=== PATIENT | male | born 1955 | race Caucasian/White ===

== ENCOUNTER 2022-10-11 09:31 | Emergency (ER) | payer BC ==
[~2022-10-11] VITALS: Ht 172.7 cm; Wt 90.7 kg
[2022-10-11 09:31] VITALS: BP_SYST 145
--- NOTE | 2022-10-11 09:31 | NUR ---
BROUGHT BACK TO BED #4 AND TRIAGED, REPORT GIVEN TO BROWN
--- NOTE | 2022-10-11 09:35 | NUR ---
RECEIVED PT FROM ALEX BLANDON. ASSUMED CARE.
--- NOTE | 2022-10-11 09:40 | NUR ---
DR. MARIN AT BEDSIDE TO ASSESS PT.
[2022-10-11] MEDS ORDERED: KETOROLAC TROMETHAMINE 15 MG VIAL IM ONE (10:00)
[2022-10-11] MEDS ORDERED: CYCLOBENZAPRINE HCL 10 MG TABLET (FLEXERIL) PO ONE (10:00)
[2022-10-11] MEDS ORDERED: LIDOCAINE PATCH 5% 1 EA TP ONE (10:00)
[2022-10-11] MEDS ORDERED: LIDO30CR47 TP (10:05)
[2022-10-11] MEDS ORDERED: CYCL10TA24 PO (10:05)
[2022-10-11] MEDS ORDERED: NAPR-688 PO (10:05)
--- NOTE | 2022-10-11 10:32 | NUR ---
SCHEDULED MEDS GIVEN AND TOLERATED WELL.
--- NOTE | 2022-10-11 10:33 | NUR ---
Patient given written and verbal discharge instructions and verbalizes understanding. ER MD discussed with patient the results and treatment provided. Patient in stable condition. ID arm band removed. Rx of FLEXERIL, LIDOCAIN CREAM, NAPROXEN given. Patient educated on pain management and to follow up with PMD. Pain Scale 4/10. Opportunity for questions provided and answered. Medication side effect fact sheet provided.
[2022-10-11 10:38] VITALS: BP_SYST 145
== END 2022-10-11 10:33 | disposition home or self-care (01) ==
LOC: SED 09:31
DX: M54.31 Sciatica, right side (principal); M54.50 Low back pain, unspecified; Z79.899 Other long term (current) drug therapy
CPT/HCPCS: 99283; 96372; J1885